=== PATIENT | female | born 1990 | race Caucasian/White ===

== ENCOUNTER 2020-11-09 13:24 | Emergency (ER) | payer SELFPAY ==
[2020-11-09 13:31] VITALS: BP 138/78
--- NOTE | 2020-11-09 14:04 | Emergency Department Report ---
ED Extremity Problem HPI - General Chief complaint: Abdominal Pain Stated complaint: ABD PAINS SEVERE Time Seen by Provider: 11/09/20 13:59 Source: patient Mode of arrival: Ambulatory Limitations: No Limitations - History of Present Illness Initial comments: 29-year-old female presents to the ER today with complaints of left groin/hip pain. Patient states that this pains been going on for the past 3 days. She states that the pain sometimes radiates into the left thigh area. She denies any apparent injury but states that she was lifting heavy boxes 3 days ago. Patient states that the pain is worse when she moves her left hip, and she describes as a achy sharp pain. She states that she hears a clicking sound sometimes when she moves her left hip. She states that she had similar symptoms a few weeks ago but it resolved on its own. She reports mild lower back pain. She denies any associated UTI symptoms, abnormal vaginal symptoms, abdominal pain, bowel or bladder incontinence, lower extremity numbness, tingling, saddle anesthesia, urinary retention or constipation. MD Complaint: joint paint -: days(s) (3) - Related Data Previous Rx's Medication Instructions Recorded Last Taken Type Ibuprofen [Motrin] 800 mg PO Q8HR PRN #30 tablet 11/09/20 Unknown Rx Allergies Allergy/AdvReac Type Severity Reaction Status Date / Time No Known Allergies Allergy Unverified 11/09/20 13:26 ED Review of Systems ROS: Stated complaint: ABD PAINS SEVERE Other details as noted in HPI Comment: All other systems reviewed and negative Constitutional: denies: chills, fever Eyes: denies: eye pain, eye discharge, vision change ENT: denies: ear pain, throat pain Respiratory: denies: cough, shortness of breath, wheezing Gastrointestinal: denies: abdominal pain, nausea, diarrhea Genitourinary: denies: urgency, dysuria, discharge Musculoskeletal: back pain, arthralgia Skin: denies: rash, lesions Neurological: denies: headache, weakness, paresthesias Psychiatric: denies: anxiety, depression Hematological/Lymphatic: denies: easy bleeding, easy bruising ED Past Medical Hx - Past Medical History Previous Medical History?: No - Surgical History Past Surgical History?: No - Social History Smoking Status: Never Smoker Substance Use Type: None - Medications Home Medications: Home Medications Medication Instructions Recorded Confirmed Last Taken Type Ibuprofen [Motrin] 800 mg PO Q8HR PRN #30 tablet 11/09/20 Unknown Rx ED Physical Exam - General Limitations: No Limitations General appearance: alert, in no apparent distress - Head Head exam: Present: atraumatic, normocephalic, normal inspection - Respiratory Respiratory exam: Absent: respiratory distress - Cardiovascular Cardiovascular Exam: Present: regular rate - GI/Abdominal GI/Abdominal exam: Present: soft. Absent: distended, tenderness, guarding, rebound - Expanded Lower Extremity Exam Left Hip exam: Present: full ROM (But it is painful), tenderness (Tenderness to palpation to the left groin, medial and lateral hip). Absent: normal inspection, swelling, abrasion, laceration, ecchymosis, deformity, crepidus, dislocation, erythema, external rotation, internal rotation, shortening, pelvic stability Upper Leg exam: Present: normal inspection, full ROM. Absent: tenderness, swelling, abrasion, laceration, ecchymosis, deformity, crepidus, dislocation, erythema Neuro vascular tendon exam: Present: no vascular compromise Gait: Positive: observed and normal - Back Exam Back exam: Present: normal inspection, full ROM. Absent: tenderness - Neurological Exam Neurological exam: Present: alert, oriented X3, CN II-XII intact, normal gait - Psychiatric Psychiatric exam: Present: normal affect, normal mood - Skin Skin exam: Present: intact ED Course Vital Signs 11/09/20 13:26 Temperature 9.6 F L Pulse Rate 79 Respiratory 18 Rate Blood Pressure 138/78 O2 Sat by Pulse 100 Oximetry ED Medical Decision Making - Radiology Data Radiology results: report reviewed Patient: PATTI BULLOCK MR #: [id number] : 1990 Acct:[id number] Age/Sex: 29 / F ADM Date: 11/09/20 Loc: ED Attending Dr: Ordering Physician: AINSLEY DEWITT Date of Service: 11/09/20 Procedure(s): XR hip 2-3V LT Accession Number(s): [id number] cc: AINSLEY Holt Time In Minutes: HISTORY:pain COMPARISON: None. TECHNIQUE: AP and lateral views were obtained FINDINGS: Bones: No fracture or dislocation. Joint spaces: Maintained. Soft tissues: No significant abnormality. Additional findings: None. IMPRESSION: 1. No significant abnormality. Signer Name: Rio Ramsey MD Signed: 11/09/2020 3:07 PM Workstation Name: [id number] Transcribed By: KEY Dictated By: Rio Ramsey MD Electronically Authenticated By: Rio Ramsey MD Signed Date/Time: 11/09/20 1507 DD/ 05 TD/TT: - Medical Decision Making 29-year-old female presents to the ER today with complaints of left groin/hip pain. Patient states that this pains been going on for the past 3 days. She states that the pain sometimes radiates into the left thigh area. She denies any apparent injury but states that she was lifting heavy boxes 3 days ago. Patient states that the pain is worse when she moves her left hip, and she describes as a achy sharp pain. She states that she hears a clicking sound sometimes when she moves her left hip. She states that she had similar symptoms a few weeks ago but it resolved on its own. She reports mild lower back pain. She denies any associated UTI symptoms, abnormal vaginal symptoms, abdominal pain, bowel or bladder incontinence, lower extremity numbness, tingling, saddle anesthesia, urinary retention or constipation. X-ray of the left hip shows nothing acute. Suspect patient pain is likely musculoskeletal at this time. P patient's physical exam and current condition does not indicate a DVT, septic joint, cellulitis, acute arterial occlusion or any other emergent conditions at this time. Therefore no indication for any further work-up, emergent consult or admission at this time. Patient is well- appearing, nontoxic and not in any acute distress. Patient's vital signs are stable. Discussed x-ray results, suspected diagnosis, and treatment plan with patient. Recommend follow-up with primary care doctor and drug safety data management specialist if not better. She understands to return to ER if symptoms changes or worsens. Patient expressed understanding of instructions and agree with plan. Patient stable at time of discharge. Critical care attestation.: If time is entered above; I have spent that time in minutes in the direct care of this critically ill patient, excluding procedure time. ED Disposition Clinical Impression: Hip pain, left Disposition: DC-01 TO HOME OR SELFCARE Is pt being admited?: No Does the pt Need Aspirin: No Condition: Stable Instructions: Joint Pain, Abdominal Pain (ED) Additional Instructions: Take the Motrin as prescribed. I recommend that you follow-up with the drug safety data management specialist listed on your discharge instructions if your symptoms persist. Return to the ER if your symptoms changes or worsens in any way. Prescriptions: Ibuprofen [Motrin] 800 mg PO Q8HR PRN #30 tablet PRN Reason: pain Referrals: ERIC CLARK MD [Staff Physician] - 3-5 Days SEBASTIAN PHAM MD [Staff Physician] - 3-5 Days Forms: Work/School Release Form(ED) Time of Disposition: 15:27
--- NOTE | 2020-11-09 15:11 | XRay Report ---
HISTORY:pain COMPARISON: None. TECHNIQUE: AP and lateral views were obtained FINDINGS: Bones: No fracture or dislocation. Joint spaces: Maintained. Soft tissues: No significant abnormality. Additional findings: None. IMPRESSION: 1. No significant abnormality. Signer Name: Rio Ramsey MD Signed: 11/09/2020 3:07 PM Workstation Name: [id number]
== END 2020-11-09 15:40 | disposition home or self-care (01) ==
LOC: ED 13:24
DX: M25.552 Pain in left hip (principal); Z79.899 Other long term (current) drug therapy
CPT/HCPCS: 99283